=== PATIENT | female | born 1990 | race Caucasian/White ===

== ENCOUNTER 2018-03-19 00:42 | Emergency (ER) | payer OTHER ==
[2018-03-19] MEDS ORDERED: Ondansetron 4 MG/2 ML SDV IVPUSH ONE (01:34)
[2018-03-19] MEDS ORDERED: Ketorolac 30 MG/ML SDV IVPUSH ONE (01:34)
--- NOTE | 2018-03-19 01:43 | EDM.PDOC ---
ED HPI GENERAL MEDICAL PROBLEM - General Chief Complaint: Respiratory Problem Stated Complaint: FLU LIKE Time Seen by Provider: 03/19/18 01:05 Source of Information: Reports: Patient History Limitations: Reports: No Limitations - History of Present Illness INITIAL COMMENTS - FREE TEXT/NARRATIVE: flu like symptom,cough for one week; this is a 27 year old female present to ER with her Father and female cousin. She reports visiting in the area, having chest pain with cough and breathing for the past week. not coughing anything up. nausea all day, has to force herself to eat. Main concerns of cough and nausea. Was seen in Urgent Care 03/10/18 for unknown diagnosis, thought maybe a bladder infection or bronchitis. She had a high white count. test negative. She was given an unknown antibiotic, taking two times a day, finished last dose this morning. reproductive; has a 9 month old infant, does not use control pills, practices natural family planning, unsure of last menses. Onset: Gradual Duration: Week(s): Location: Reports: Chest (painful cough), Abdomen (nausea) Severity: Mild Improves with: Reports: None Worsens with: Reports: None Associated Symptoms: Reports: Cough, Loss of Appetite, Nausea/Vomiting (no vomiting) - Related Data Allergies Allergy/AdvReac Type Severity Reaction Status Date / Time No Known Allergies Allergy Verified 03/19/18 00:58 Home Meds: Home Meds Omeprazole Magnesium [Prilosec Otc] 20 mg PO DAILY 03/19/18 [History] PARoxetine [Paxil] 5 mg PO DAILY 03/19/18 [History] amLODIPine [Norvasc] 2.5 mg PO DAILY 03/19/18 [History] buPROPion HCl [Wellbutrin Xl] 150 mg PO DAILY 03/19/18 [History] carBAMazepine [TEGretol Tab] 200 mg PO BID 03/19/18 [History] Past Medical History HEENT History: Reports: Sinusitis Cardiovascular History: Reports: Hypertension Other Respiratory History: exercise induced asthma [employer]INTENA[employer]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 Other Musculoskeletal History: muscle aches to legs, pectoral muscle Neurological History: Reports: Other (See Below) Other Neuro History: arachnoid cyst, headaches wtih swallowing/speech issues, treviño's palsey, Psychiatric History: Reports: Anxiety, Panic Attack Endocrine/Metabolic History: Reports: Other (See Below) Other Endocrine/Metabolic History: hx thyroid disease, resolved with Oncologic (Cancer) History: Reports: Other (See Below) Other Oncologic History: fibroadenoma left breast benign - Past Surgical History Neurological Surgical History: Reports: None Oncologic Surgical History: Reports: Biopsy of Breast Social & Family History - Family History Family Medical History: Noncontributory - Living Situation & Occupation Living situation: Reports: (lives with and 9 month old , here visiting parents in [place], [place]. lives in [place], [place]) ED ROS GENERAL - Review of Systems Review Of Systems: See Below Constitutional: Reports: Decreased Appetite HEENT: Reports: No Symptoms Respiratory: Reports: Pleuritic Chest Pain, Cough Cardiovascular: Reports: No Symptoms Endocrine: Reports: No Symptoms GI/Abdominal: Reports: Nausea : Reports: No Symptoms Musculoskeletal: Reports: Back Pain (low back pain) Skin: Reports: No Symptoms Neurological: Reports: No Symptoms Psychiatric: Reports: Other (currently weaning off Paxil and starting Wellbutrin.) Hematologic/Lymphatic: Reports: No Symptoms Immunologic: Reports: No Symptoms ED EXAM, GENERAL - Physical Exam Exam: See Below Exam Limited By: No Limitations General Appearance: Alert, WD/WN, No Apparent Distress Eye Exam: Bilateral Eye: Normal Inspection Ears: Normal External Exam, Normal Canal, Hearing Grossly Normal, Normal TMs Ear Exam: Bilateral Ear: Auricle Normal, Canal Normal, TM normal Nose: Normal Inspection, Normal Mucosa, No Blood Throat/Mouth: Normal Inspection, Normal Lips, Normal Teeth, Normal Gums, Normal Oropharynx, Normal Voice, No Airway Compromise Head: Atraumatic, Normocephalic Neck: Normal Inspection, Supple, Non-Tender, Full Range of Motion Respiratory/Chest: No Respiratory Distress, Lungs Clear, Normal Breath Sounds, No Accessory Muscle Use, Chest Non-Tender Cardiovascular: Normal Peripheral Pulses, Regular Rate, Rhythm, No Edema, No Gallop, No JVD, No Murmur, No Rub GI/Abdominal: Normal Bowel Sounds, Soft, Non-Tender, No Organomegaly, No Distention, No Abnormal Bruit, No Mass (Female) Exam: Deferred Rectal (Female) Exam: Deferred Back Exam: Normal Inspection, Full Range of Motion, NT Extremities: Normal Inspection, Normal Range of Motion, Non-Tender, Normal Capillary Refill, No Pedal Edema Neurological: Alert, Oriented, CN II-XII Intact, Normal Cognition, Normal Gait, Normal Reflexes, No Motor/Sensory Deficits Psychiatric: Normal Affect, Normal Mood Skin Exam: Warm, Dry, Intact, Normal Color, No Rash Lymphatic: No Adenopathy Course - Vital Signs Last Recorded V/S: Last Vital Signs Temp 37.3 C 03/19/18 01:15 Pulse 83 03/19/18 02:48 Resp 15 03/19/18 02:48 BP 120/80 03/19/18 02:48 Pulse Ox 99 03/19/18 02:15 - Orders/Labs/Meds Orders: Active Orders 24 hr Category Date Time Status Chest 2V [CR] Urgent Exams 03/19/18 01:36 Taken UA W/MICROSCOPIC [URIN] Urgent Lab 03/19/18 01:36 Ordered Sodium Chloride 0.9% [Normal Saline] 1,000 ml Med 03/19/18 01:45 Active IV ASDIRECTED Medication Orders Sodium Chloride (Normal Saline) 1,000 mls @ 999 mls/hr IV ASDIRECTED PATRICIA Last Admin: 03/19/18 02:07 Dose: 999 mls/hr Labs: Laboratory Tests 03/19/18 03/19/18 03/19/18 Range/Units 01:43 01:43 01:56 WBC 13.9 H (4.5-11.0) K/uL RBC 5.18 (3.30-5.50) M/uL Hgb 16.7 H (12.0-15.0) g/dL Hct 46.4 (36.0-48.0) % MCV 90 (80-98) fL MCH 32 H (27-31) pg MCHC 36 (32-36) % Plt Count 417 H (150-400) K/uL Neut % (Auto) 68 H (36-66) % Lymph % (Auto) 20 L (24-44) % [place] % (Auto) 10 H (2-6) % Eos % (Auto) 1 L (2-4) % Baso % (Auto) 1 (0-1) % Sodium 139 L (140-148) mmol/L Potassium 3.5 L (3.6-5.2) mmol/L Chloride 103 (100-108) mmol/L Carbon Dioxide 24 (21-32) mmol/L Anion Gap 15.5 H (5.0-14.0) mmol/L BUN 15 (7-18) mg/dL Creatinine 0.9 (0.6-1.0) mg/dL Est Cr Clr Drug Dosing TNP Estimated GFR (MDRD) > 60 (>60) Glucose 124 H (74-106) mg/dL Calcium 9.5 (8.5-10.1) mg/dL HCG, Qual Negative Meds: Medications Generic Name Dose Route Start Last Admin Trade Name Freq PRN Reason Stop Dose Admin Sodium Chloride 1,000 mls @ 999 mls/hr 03/19/18 01:45 03/19/18 02:07 Normal Saline IV 999 mls/hr ASDIRECTED PATRICIA Administration Discontinued Medications Generic Name Dose Route Start Last Admin Trade Name Freq PRN Reason Stop Dose Admin Ketorolac Tromethamine 30 mg 03/19/18 01:34 03/19/18 02:02 Toradol IVPUSH 03/19/18 01:35 30 mg ONETIME ONE Administration Ondansetron HCl 4 mg 03/19/18 01:34 03/19/18 01:59 Zofran IVPUSH 03/19/18 01:35 4 mg ONETIME ONE Administration - Re-Assessments/Exams Free Text/Narrative Re-Assessment/Exam: 03/19/18 01:48 discussed with Mrs. Baum and her family members, exam is negative, will rule out any illness or . If Labs and Xray are negative this can be related to medication changes or inflammation of sternum, or residual from respiratory infection or . will give Normal Saline 999ml/hrx 1 liter, IV Zofran 4mg., IV Toradol 30mg. await lab results. Patient and Family agree with plan of care. 03/19/18 02:51 chest xray negative for infiltrate or acute process labs; WBC 13.9, hcg negative will treat for acute bronchitis, zithromax, robitussin ac and zofran advised to follow up in Primary Care for recheck. Departure - Departure Time of Disposition: 02:53 Disposition: Home, Self-Care 01 Condition: Good Clinical Impression: Bronchitis - Discharge Information *PRESCRIPTION DRUG MONITORING PROGRAM REVIEWED*: No *COPY OF PRESCRIPTION DRUG MONITORING REPORT IN PATIENT BRIANDA: No Referrals: PCP,None [Primary Care Provider] - Forms: ED Department Discharge Care Plan Goals: bronchitis -Robitussin AC 10ml every 4hr prn painful cough -Zofran one every 8 hr as needed for nausea/vomiting -Zithromax 2 tabs today, then one tablet daily drink 8 to 10 glasses of water daily to keep hydrated follow up in [facility] for recheck Return to ER or Urgent Care for any fever,chills, nausea, vomiting, rash or not improved - Problem List & Annotations (1) Bronchitis SNOMED Code(s): 43789038 Code(s): J40 - BRONCHITIS, NOT SPECIFIED ACUTE OR CHRONIC Status: Acute Priority: High Current Visit: Yes - Problem List Review Problem List Initiated/Reviewed/Updated: Yes - My Orders Last 24 Hours: My Active Orders 03/19/18 01:36 Chest 2V [CR] Urgent UA W/MICROSCOPIC [URIN] Urgent 03/19/18 01:45 Sodium Chloride 0.9% [Normal Saline] 1,000 ml IV ASDIRECTED - Assessment/Plan Last 24 Hours: My Active Orders 03/19/18 01:36 Chest 2V [CR] Urgent UA W/MICROSCOPIC [URIN] Urgent 03/19/18 01:45 Sodium Chloride 0.9% [Normal Saline] 1,000 ml IV ASDIRECTED Plan: bronchitis -Robitussin AC 10ml every 4hr prn painful cough -Zofran one every 8 hr as needed for nausea/vomiting -Zithromax 2 tabs today, then one tablet daily drink 8 to 10 glasses of water daily to keep hydrated follow up in Primary Care Clinic for recheck Return to ER or Urgent Care for any fever,chills, nausea, vomiting, rash or not improved
[2018-03-19] MEDS ORDERED: Sodium Chloride 0.9% 1,000 ML IV SCH (01:45)
--- NOTE | 2018-03-20 09:18 | CR ---
CHEST: 2 view CLINICAL HISTORY:Left upper chest pain COMPARISON:None FINDINGS: Heart and pulmonary vascularity appear normal. Lung angulo are clear. . IMPRESSION: No acute cardiopulmonary process
== END 2018-03-19 03:29 | disposition home or self-care (01) ==
LOC: JP.ED 00:42
DX: J40 Bronchitis, not specified as acute or chronic (principal); Z79.899 Other long term (current) drug therapy
CPT/HCPCS: 36415; 71046; 80048; 84703; 85025; 96361; 96374; 96375; 99284; J1885; J2405; J7030